=== PATIENT | male | born 1995 | race Caucasian/White ===

== ENCOUNTER 2018-01-03 20:46 | Emergency (ER) | payer MEDICAID ==
[2018-01-03] MEDS ORDERED: predniSONE TAB* 20 MG PO ONE (20:53)
[2018-01-03] MEDS ORDERED: Albuterol/Ipratropium NEB.SOL* Albuterol 2.5 MG/Ipratropium 0.5 MG 3 ML INH ONE (20:53)
[2018-01-03 20:56] VITALS: BP 126/64
--- NOTE | 2018-01-03 21:12 | ED ---
Asthma - HPI Summary HPI Summary: 22 yr old male with the complaint of SOB. Onset three days ago with coughing episode that are non productive, SOB, wheezing and some tightness in chest. He states he feels like this with asthma exacerbations. He has not had an asthma issue in about three years or so. He had gastric bypass surgery which he says has improved his overall lung issues, and that he is off of his CPAP machine for sleep apnea now. - History of Current Complaint Chief Complaint: UCRespiratory Stated Complaint: TROUBLE BREATHING Time Seen by Provider: 01/03/18 20:50 Pain Intensity: 8 - Allergy/Home Medications Allergies/Adverse Reactions: Allergies Allergy/AdvReac Type Severity Reaction Status Date / Time amoxicillin Allergy Swelling Verified 01/03/18 20:50 Of Face,Lips,& Throat Penicillins Allergy Swelling Verified 01/03/18 20:50 Of Face,Lips,& Throat Home Medications: Home Medications Albuterol HFA INHALER* [Ventolin HFA Inhaler*] 3 puff INH ONCE PRN 01/03/18 [ History Confirmed 01/03/18] PMH/Surg Hx/FS Hx/Imm Hx Respiratory History: Reports: Hx Asthma - Surgical History Surgery Procedure, Year, and Place: gastric bypass Infectious Disease History: No Infectious Disease History: Denies: Traveled Outside the [place] in Last 30 Days - Family History Known Family History: Positive: Diabetes - Social History Lives: With Family Alcohol Use: None Substance Use Type: Reports: None Smoking Status (MU): Never Smoked Tobacco Review of Systems Constitutional: Negative Positive: Shortness Of Breath, Cough Negative: Edema All Other Systems Reviewed And Are Negative: Yes Physical Exam Triage Information Reviewed: Yes Vital Signs On Initial Exam: Initial Vitals Temp Pulse Resp BP Pulse Ox 97.5 F 80 20 126/64 100 01/03/18 20:51 01/03/18 20:51 01/03/18 20:51 01/03/18 20:51 01/03/18 20:51 Vital Signs Reviewed: Yes Appearance: Positive: Well-Appearing, No Pain Distress Skin: Positive: Warm, Skin Color Reflects Adequate Perfusion Head/Face: Positive: Normal Head/Face Inspection Eyes: Positive: EOMI ENT: Positive: Normal ENT inspection Neck: Positive: Nontender Respiratory/Lung Sounds: Positive: Decreased Breath Sounds - bilateral. Negative: Stridor, Tracheal Deviation Cardiovascular: Positive: RRR. Negative: Murmur Abdomen Description: Negative: Distended Musculoskeletal: Positive: Strength/ROM Intact. Negative: Edema Left, Edema Right Neurological: Positive: Sensory/Motor Intact, Alert, Oriented to Person Place, Time, CN Intact II-III Psychiatric: Positive: Normal Diagnostics - Vital Signs Vital Signs Temp Pulse Resp BP Pulse Ox 01/03/18 20:51 97.5 F 80 20 126/64 100 - Laboratory Lab Statement: Any lab studies that have been ordered have been reviewed, and results considered in the medical decision making process. - Radiology chest pa lat Xray Interpretation: No Acute Changes Radiology Interpretation Completed By: ED Physician Re-Evaluation - Re-Evaluation First Eval Re-Evaluation Time: 21:10 Change: Unchanged - minimal improvement with neb Second Eval Re-Evaluation Time: 21:47 Change: Unchanged Comment: no change after second neb Asthma Course/Dx - Course Course Of Treatment: Still has SOB and pleuritic pain on ly when breaths. Xray no pneumo seen. He signed out AMA refusing transport by EMS to ER for further work up. - Diagnoses Provider Diagnoses: Shortness of breath, Pleuritic pain Discharge - Sign-Out/Discharge Documenting (check all that apply): Patient Departure All imaging exams completed and their final reports reviewed: No - Discharge Plan Condition: Good Disposition: AGAINST MEDICAL ADVICE Referrals: Jennifer Brown NP [Primary Care Provider] - - Billing Disposition and Condition Condition: GOOD Disposition: Against Medical Advice
[2018-01-03] MEDS ORDERED: Albuterol 2.5 MG/3 ML NEB.SOL* (0.083%) INH ONE (21:20)
--- NOTE | 2018-01-04 09:48 | RAD ---
INDICATION: 3 days chest pain, shortness of breath. Nonproductive cough. History of asthma. COMPARISON: No relevant prior exams available on the [facility] [place] PACS for comparison. TECHNIQUE: Dual energy PA and routine lateral views of the chest were obtained. REPORT: No focal pulmonary lesion, compelling alveolar consolidation, pleural effusion, pneumothorax. The heart, pulmonary vasculature, and mediastinal contours are unremarkable. Mild degenerative spondylosis at the lower thoracic spine. IMPRESSION: #. No evidence for acute intrathoracic disease. R0
--- NOTE | 2018-01-05 08:31 | UC ---
Re-Evaluation - Re-Evaluation First Eval Re-Evaluation Time: 21:10 Change: Unchanged - minimal improvement with neb Second Eval Re-Evaluation Time: 21:47 Change: Unchanged Comment: no change after second neb Course/Dx - Diagnoses Provider Diagnoses: Shortness of breath, Pleuritic pain Discharge - Sign-Out/Discharge Documenting (check all that apply): Post-Discharge Follow Up All imaging exams completed and their final reports reviewed: Yes - Discharge Plan Condition: Good Disposition: AGAINST MEDICAL ADVICE Referrals: Jennifer Brown NP [Primary Care Provider] - - Billing Disposition and Condition Condition: GOOD Disposition: Against Medical Advice
== END 2018-01-03 21:47 | disposition left against medical advice (07) ==
LOC: UCCORT 20:46
DX: R06.02 Shortness of breath (principal); R07.81 Pleurodynia; R05 Cough; R06.2 Wheezing; J45.909 Unspecified asthma, uncomplicated; Z88.0 Allergy status to penicillin
CPT/HCPCS: 71046; 99203; A9270-GY; G0463; J7512